=== PATIENT | male | born 1960 | race African-American/Black ===

== ENCOUNTER 2016-03-06 19:57 | Emergency (ER) | payer MEDICARE, MEDICAID ==
[~2016-03-06] VITALS: Ht 182.9 cm; Wt 131.5 kg
[2016-03-06] MEDS ORDERED: DuoNeb 0.5-3(2.5)mg/3ml neb ONE (20:26)
--- NOTE | 2016-03-06 20:28 | Emergency Room Report ---
History of Present Illness General Chief Complaint: Dyspnea/Respdistress Source: Patient Present Illness HPI The patient is a 55-year-old male who presented after having increased difficulty breathing. Patient reported having prior history of the left ventricular assist device which the upper and had been working well. The patient noticed having some subjective cough and nasal congestion. He stated he had prior history of gastroparesis and had been followed at [facility]. The patient denied any difficulty with urination. He states he takes Bumex. The patient is also on multiple medications. Allergies: Coded Allergies: AZITHROMYCIN (Verified Allergy, Unknown, 03/06/16) EPTIFIBATIDE (Verified Allergy, Unknown, 03/06/16) Uncoded Allergies: STATIN (Allergy, Unknown, 03/06/16) Patient History Past Medical History: see triage record Reviewed Nursing Documentation: PMH: Agreed, PSxH: Agreed Nursing Documentation-PMH Hx Cardiac Problems: Yes - Pacemaker, CHF Hx Diabetes: Yes Review of Systems All Other Systems: negative except mentioned in HPI Physical Exam Vital Signs Date Time Temp Pulse Resp B/P Pulse Ox O2 Delivery O2 Flow Rate FiO2 03/06/16 19:56 84 26 119/89 98 Room Air Sp02 EP Interpretation: reviewed, normal General Appearance: normal inspection, well appearing, no apparent distress, alert, GCS 15, non-toxic Head: atraumatic ENT: normal ENT inspection, hearing grossly normal, normal voice Neck: normal inspection, full range of motion, supple, no bony tend Respiratory: normal inspection, lungs clear, normal breath sounds, no respiratory distress, no retraction, no wheezing Cardiovascular #1: regular rate, rhythm, no edema Gastrointestinal: normal inspection, normal bowel sounds, non tender, soft, no guarding, no hernia Genitourinary: no CVA tenderness Musculoskeletal: normal inspection, back normal, normal range of motion Neurologic: normal inspection, alert, oriented x3, responsive, manager of case management III-XII nml as tested, speech normal Psychiatric: normal inspection, judgement/insight normal, mood/affect normal Skin: normal inspection, normal color, no rash Medical Decision Making Diagnostic Impression: Primary Impression: Respiratory distress Additional Impression: Abdominal pain ER Course Patient presented for shortness of breath.Differential included but was not limited to anemia, pneumonia, pneumothorax, myocardial infarction, pericardial effusion, congestive heart failure, acidosis. Because of complexity of patient' s case laboratory testing and imaging studies were ordered.Patient was noted to have a normal white blood count. The patient had normal hemoglobin. Laboratory testing for chemistries was hemolyzed. The patient refused further blood draw. EKG interpreted by me showed. The patient was noted to have prior history of left ventricular assist device placement. Patient was discussed with Dr. Sanders at [facility] who agreed except patient in transferThe patient was started on IV fluids as per discussion with Dr. Sanders. Labs Test 03/06/16 20:16 03/06/16 22:50 White Blood Count 7.9 K/UL (4.8-10.8) Red Blood Count 4.64 M/UL (4.70-6.10) Hemoglobin 13.3 G/DL (14.2-18.0) Hematocrit 41.0 % (42.0-52.0) Mean Corpuscular Volume 88 FL (80-99) Mean Corpuscular Hemoglobin 28.6 PG (27.0-31.0) Mean Corpuscular Hemoglobin Concent 32.4 G/DL (32.0-36.0) Red Cell Distribution Width 16.7 % (11.6-14.8) Platelet Count 188 K/UL (150-450) Mean Platelet Volume 9.1 FL (6.5-10.1) Neutrophils (%) (Auto) 63.2 % (45.0-75.0) Lymphocytes (%) (Auto) 18.6 % (20.0-45.0) Monocytes (%) (Auto) 11.3 % (1.0-10.0) Eosinophils (%) (Auto) 4.2 % (0.0-3.0) Basophils (%) (Auto) 2.7 % (0.0-2.0) Prothrombin Time 14.1 SEC (9.30-11.50) Prothromb Time International Ratio 1.4 (0.9-1.1) Activated Partial Thromboplast Time 24 SEC (23-33) EKG Diagnostic Results Rate: other - paced rhythm ST Segments: no acute changes Rhythm Strip Diag. Results EP Interpretation: yes Chest X-Ray Diagnostic Results EP Interpretation: Yes Findings: no consolidation, no effusion, no pneumothorax, other - LVAD, CM Number of Views: 1 Last Vital Signs Date Time Temp Pulse Resp B/P Pulse Ox O2 Delivery O2 Flow Rate FiO2 03/06/16 19:56 84 26 119/89 98 Room Air Status: unchanged Disposition: XFER SHT-TRM HOSP Condition: Serious AlonsoTiburcio Mar 06, 2016 20:28
[2016-03-06 20:40] LABS: BASOPHILS % (AUTO) 2.7 % (0.0-2.0); EOSINOPHILS % (AUTO) 4.2 % (0.0-3.0); LYMPHOCYTES % (AUTO) 18.6 % (20.0-45.0); MEAN CORPUSCULAR HEMOGLOBIN 28.6 PG (27.0-31.0); MEAN CORPUSCULAR HGB CONC 32.4 G/DL (32.0-36.0); MEAN CORPUSCULAR VOLUME 88 FL (80-99); MEAN PLATELET VOLUME 9.1 FL (6.5-10.1); MONOCYTES % (AUTO) 11.3 % (1.0-10.0); NEUTROPHILS % (AUTO) 63.2 % (45.0-75.0); PLATELET COUNT 188 K/UL (150-450); RED BLOOD COUNT 4.64 M/UL (4.70-6.10); RED CELL DISTRIBUTION WIDTH 16.7 % (11.6-14.8); WHITE BLOOD COUNT 7.9 K/UL (4.8-10.8)
[2016-03-06 20:47] LABS: INR 1.4 (0.9-1.1); PROTHROMBIN TIME 14.1 SEC (9.30-11.50)
[2016-03-06 21:03] VITALS: BP 110/89
[2016-03-06 22:00] VITALS: BP 120/98
[2016-03-06] MEDS ORDERED: Metoclopramide 10mg/2ml Inj IVP ONE (22:15)
[2016-03-06 23:30] VITALS: BP 121/53
[2016-03-06 23:39] LABS: TROPONIN I < 0.30 ng/mL (<=0.30)
[2016-03-06 23:53] LABS: ALBUMIN/GLOBULIN RATIO 1.2 (1.0-2.7); CALCIUM 9.5 mg/dL (8.6-10.2); CREATININE 2.2 mg/dL (0.7-1.2); GLOMERULAR FILTRATION RATE 37.9 mL/min (>60); POTASSIUM 4.6 mEQ/L (3.4-4.9); TOTAL PROTEIN 7.2 g/dL (6.6-8.7)
[2016-03-07 00:12] VITALS: BP 121/53
--- NOTE | 2016-03-07 12:20 | Diagnostic Imaging Report ---
Indication: Dyspnea Comparison: None A single view chest radiograph was obtained. Findings: No definite infiltrate or pulmonary vascular congestion identified. Sternotomy and pacemaker noted. The heart is enlarged. The aorta is mildly enlarged consistent with atherosclerotic vascular disease. The bones are osteopenic. Impression: No acute disease
== END 2016-03-07 00:30 | disposition short-term general hospital (02) ==
LOC: EDBD 19:57 → EMR 20:15
DX: R06.00 Dyspnea, unspecified (principal); R10.9 Unspecified abdominal pain; Z95.0 Presence of cardiac pacemaker; I50.9 Heart failure, unspecified; E11.9 Type 2 diabetes mellitus without complications; R05 Cough; Z88.1 Allergy status to other antibiotic agents; Z88.8 Allergy status to other drugs, medicaments and biological substances
CPT/HCPCS: 36415; 71010; 80053; 82962; 83880; 84484; 85025; 85610; 85730; 86710; 93005; 99285; J7620

== ENCOUNTER 2016-04-21 17:47 | Emergency (ER) | payer MEDICARE, MEDICAID ==
[~2016-04-21] VITALS: Ht 182.9 cm; Wt 131.5 kg
[2016-04-21 17:56] VITALS: BP 120/90
[2016-04-21 21:45] VITALS: BP 100/71
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
== END 2016-04-21 21:50 | disposition home or self-care (01) ==
LOC: EDBD 17:47 → EMR 18:03
DX: T82.897A Other specified complication of cardiac prosthetic devices, implants and grafts, initial encounter (principal); Z95.0 Presence of cardiac pacemaker; I50.9 Heart failure, unspecified; E11.9 Type 2 diabetes mellitus without complications; Z79.4 Long term (current) use of insulin; Z88.1 Allergy status to other antibiotic agents; Z88.8 Allergy status to other drugs, medicaments and biological substances; Y84.8 Other medical procedures as the cause of abnormal reaction of the patient, or of later complication, without mention of misadventure at the time of the procedure; Y92.9 Unspecified place or not applicable; Y99.8 Other external cause status
CPT/HCPCS: 99283